=== PATIENT | male | born 1960 | race Caucasian/White ===

== ENCOUNTER 2025-05-06 12:53 | Inpatient (IN) | payer OTHER ==
[~2025-05-06] VITALS: Ht 188 cm; Wt 108.9 kg
[~2025-05-06 12:53] MED LIST: ALLO100 PO; Crestor20 MG PO; ESCI10 PO; LISI5 PO
[2025-05-06 13:18] LABS: BASOPHILS ABSOLUTE AUTO 0.05 K/mm3 (0.00-0.23); BASOPHILS PERCENT AUTO 1 % (0-2); EOSINOPHILS ABSOLUTE AUTO 0.16 K/mm3 (0.00-0.68); EOSINOPHILS PERCENT AUTO 2 % (0-6); Hematocrit 49.5 % (37.0-53.0); Hemoglobin 17.2 g/dL (13.5-17.5); IMMATURE GRAN ABSOLUTE AUTO 0.04 K/mm3 (0.00-0.10); IMMATURE GRAN PERCENT AUTO 1 % (0-1); LYMPHOCYTES ABSOLUTE AUTO 1.83 K/mm3 (0.84-5.20); LYMPHOCYTES PERCENT AUTO 23 % (21-46); MONOCYTES ABSOLUTE AUTO 1.03 K/mm3 (0.16-1.47); MONOCYTES PERCENT AUTO 13 % (4-13); Mean Corpuscular HGB Conc 34.7 g/dL (31.5-36.5); Mean Corpuscular Volume 96 fL (80-100); NEUTROPHILS ABSOLUTE AUTO 4.75 K/mm3 (1.96-9.15); NEUTROPHILS PERCENT AUTO 61 % (41-73); NRBC ABSOLUTE 0.00 K/mm3 (0.00-0.02); NRBC Auto 0.0 /100 WBC (0.0-0.2); Platelet Count 210 K/mm3 (150-400); RDW Coefficient Variation 12.7 % (11.7-14.2); RDW Standard Deviation 45.1 fL (35.1-46.3)
[2025-05-06 13:36] LABS: Alanine Aminotransfer (ALT/SGP 110.0 U/L (12-78); Albumin, Blood 3.7 g/dL (3.4-5.0); Albumin/Globulin Ratio 1.0 (0.8-1.8); Anion Gap 11.0 mmol/L (3-11); Aspartate Aminotrans (AST/SGOT 114.0 U/L (12-37); Bilirubin, Total 2.1 mg/dL (0.1-1.0); Blood Urea Nitrogen 15.0 mg/dL (8-24); CO2, Blood 23.0 mmol/L (21-32); Calcium, Blood 8.8 mg/dL (8.5-10.1); Chloride, Blood 102.0 mmol/L (98-108); Creatinine, Blood 0.84 mg/dL (0.60-1.20); Globulin, Blood 3.8 g/dL (2.2-4.0); Glucose, Blood 156.0 mg/dL (70-99); Potassium, Blood 4.3 mmol/L (3.5-5.5); Sodium, Blood 132.0 mmol/L (136-145); Total Protein, Blood 7.5 g/dL (6.4-8.2)
[2025-05-06] MEDS ORDERED: LORazepam 2 MG/ML 1ML Injection IV ONE (15:10)
[2025-05-06] MEDS ORDERED: NS 1,000 ML IV SCH (15:15)
[2025-05-06 16:48] LABS: Magnesium, Blood 2.1 mg/dL (1.6-2.4); Phosphorus, Blood 3.3 mg/dL (2.5-4.9)
[2025-05-06] MEDS ORDERED: LORazepam 2 MG/ML 1ML Injection IV PRN (18:30)
[2025-05-06] MEDS ORDERED: FLU VACC TS2025-26(6MOS UP)/PF 45 MCG/0.5 ML SYRINGE IM SCH (18:30)
[2025-05-06] MEDS ORDERED: ALLOPURINOL100 M1 PO (18:34)
[2025-05-06] MEDS ORDERED: BUPROPION XL150 M1 PO (18:34)
[2025-05-06 18:49] LABS: Alanine Aminotransfer (ALT/SGP 101.0 U/L (12-78); Albumin, Blood 3.4 g/dL (3.4-5.0); Albumin/Globulin Ratio 1.0 (0.8-1.8); Aspartate Aminotrans (AST/SGOT 105.0 U/L (12-37); Bilirubin, Direct 0.5 mg/dL (0.0-0.3); Bilirubin, Indirect 1.4 mg/dL (0.1-0.7); Bilirubin, Total 1.9 mg/dL (0.1-1.0); Globulin, Blood 3.5 g/dL (2.2-4.0); Total Protein, Blood 6.9 g/dL (6.4-8.2)
[2025-05-06] MEDS ORDERED: Ondansetron HCl 2 MG / ML 2ML Vial ONE (19:57)
[2025-05-06] MEDS ORDERED: THIAMINE HCL IV ONE (20:00)
[2025-05-06] MEDS ORDERED: NS IV ONE (20:00)
[2025-05-06 20:41] VITALS: BP 148/95
[2025-05-06] MEDS ORDERED: NS 250 ML IV PRN (21:00)
--- NOTE | 2025-05-07 00:02 | NUR ---
Floor Admission Note: Received pt. from the ED via w/c @ 2020, AOx4 speech is clear & is able to accurately respond to questioning by the RN, pt. mood & affect are stable, he is pleasant and is in good spirits upon admission. He denies any discomfort and/or tactile/auditory disturbance upon admission, he states slight numbing of his LUE, no visible tremors, sweating, nausea, restlessness and/or other S/S active withdrawals noted on the pt. at the time of admission. (L) AC IVL patent & intact, he tolerated IV Thiamine administered as ordered. He is stable & resting comfortably with his call velazquez in reach @ this time, all safety and comfort measures maintained by staff.
[2025-05-07 05:19] VITALS: BP 123/94
[2025-05-07 06:02] LABS: BASOPHILS ABSOLUTE AUTO 0.05 K/mm3 (0.00-0.23); BASOPHILS PERCENT AUTO 1 % (0-2); EOSINOPHILS ABSOLUTE AUTO 0.23 K/mm3 (0.00-0.68); EOSINOPHILS PERCENT AUTO 4 % (0-6); Hematocrit 43.7 % (37.0-53.0); Hemoglobin 14.8 g/dL (13.5-17.5); IMMATURE GRAN ABSOLUTE AUTO 0.04 K/mm3 (0.00-0.10); IMMATURE GRAN PERCENT AUTO 1 % (0-1); LYMPHOCYTES ABSOLUTE AUTO 2.10 K/mm3 (0.84-5.20); LYMPHOCYTES PERCENT AUTO 32 % (21-46); MONOCYTES ABSOLUTE AUTO 0.91 K/mm3 (0.16-1.47); MONOCYTES PERCENT AUTO 14 % (4-13); Mean Corpuscular HGB Conc 33.9 g/dL (31.5-36.5); Mean Corpuscular Volume 98 fL (80-100); NEUTROPHILS ABSOLUTE AUTO 3.21 K/mm3 (1.96-9.15); NEUTROPHILS PERCENT AUTO 49 % (41-73); NRBC ABSOLUTE 0.00 K/mm3 (0.00-0.02); NRBC Auto 0.0 /100 WBC (0.0-0.2); Platelet Count 172 K/mm3 (150-400); RDW Coefficient Variation 12.8 % (11.7-14.2); RDW Standard Deviation 45.8 fL (35.1-46.3)
[2025-05-07 06:42] LABS: Alanine Aminotransfer (ALT/SGP 86.0 U/L (12-78); Albumin, Blood 3.1 g/dL (3.4-5.0); Albumin/Globulin Ratio 1.0 (0.8-1.8); Anion Gap 9.0 mmol/L (3-11); Aspartate Aminotrans (AST/SGOT 75.0 U/L (12-37); Bilirubin, Total 1.9 mg/dL (0.1-1.0); Blood Urea Nitrogen 15.0 mg/dL (8-24); CO2, Blood 28.0 mmol/L (21-32); Calcium, Blood 8.3 mg/dL (8.5-10.1); Chloride, Blood 104.0 mmol/L (98-108); Creatinine, Blood 0.84 mg/dL (0.60-1.20); Globulin, Blood 3.2 g/dL (2.2-4.0); Glucose, Blood 122.0 mg/dL (70-99); Magnesium, Blood 2.4 mg/dL (1.6-2.4); Phosphorus, Blood 4.0 mg/dL (2.5-4.9); Potassium, Blood 4.0 mmol/L (3.5-5.5); Sodium, Blood 137.0 mmol/L (136-145); Thyroid Stimulating Hormone 2.18 uIU/mL (0.360-4.800); Total Protein, Blood 6.3 g/dL (6.4-8.2)
--- NOTE | 2025-05-07 07:23 | NUR ---
OUT OF ROOM NOTE: PATIENT OUT OF ROOM AT THIS TIME VIA W/C TO IMAGING.
[2025-05-07] MEDS ORDERED: Insulin Human Lispro 100 Units/ML 3ML Syringe SC SCH (07:30)
[2025-05-07 08:19] VITALS: BP 138/98
[2025-05-07] MEDS ORDERED: Enoxaparin 40 MG/0.4 ML SYR SC SCH (09:00)
[2025-05-07 15:23] VITALS: BP 125/87
--- NOTE | 2025-05-07 17:53 | NUR ---
PT ALERT AND ORIENTED X4, INDEPENDENT IN ROOM, CIWA SCORE 0, STATES LAST DRINK WAS THURSDAY AT 10PM, MRI STUDY COMPLETED TODAY ADN ABD US. PT DENIES PAIN, NAUSEA AND IS TOLERATING CARB CONSISTANT DIET. THIAMIVE IV Q6. CALL LIGHT IN REACH, BLOOD GLUCOSE STABLE.
[2025-05-07 19:52] VITALS: BP 153/98
[2025-05-08] VITALS (7 sets, daily range): BP systolic 126–143; BP diastolic 96–111
--- NOTE | 2025-05-08 03:32 | NUR ---
PATIENT REPORTS HE FEEL LIKE HE IS IN ALCOHOL WITHDRAWAL WITH HX OF. CIWA=8 WITH MILD SWEATS, MODERATE ANXIETY, AND HEADACHE WITH FEELING OF PARANOIA. IV ATIVAN 2 MG GIVEN PER EMAR. WCTM.
--- NOTE | 2025-05-08 04:33 | NUR ---
SHIFT SUMMARY PATIENT HAVING WITHDRAWALS (SEE NOTE). ALERT ORIENTED AND INDEPENDENT. DENIES CHEST PAIN, SOB, AND N/V. VSS/AFEBRILE. CBG 182. REPORTED DUQUE AND TYLENOL 650 MG GIVEN PER EMAR. PIV INTACT. IV THIAMINE INFUSED. REPORTS POOR SLEEP FIRST PART OF SHIFT. SLEPT AFTER IV ATIVAN WAS GIVEN. CALL LIGHT IN REACH. BED IN LOWEST POSITION. WILL CONTINUE TO MONITOR UNTIL DAY SHIFT NURSE ASSUMES CARE.
[2025-05-08 06:20] LABS: BASOPHILS ABSOLUTE AUTO 0.04 K/mm3 (0.00-0.23); BASOPHILS PERCENT AUTO 1 % (0-2); EOSINOPHILS ABSOLUTE AUTO 0.29 K/mm3 (0.00-0.68); EOSINOPHILS PERCENT AUTO 5 % (0-6); Hematocrit 44.6 % (37.0-53.0); Hemoglobin 15.3 g/dL (13.5-17.5); IMMATURE GRAN ABSOLUTE AUTO 0.02 K/mm3 (0.00-0.10); IMMATURE GRAN PERCENT AUTO 0 % (0-1); LYMPHOCYTES ABSOLUTE AUTO 1.95 K/mm3 (0.84-5.20); LYMPHOCYTES PERCENT AUTO 31 % (21-46); MONOCYTES ABSOLUTE AUTO 1.03 K/mm3 (0.16-1.47); MONOCYTES PERCENT AUTO 16 % (4-13); Mean Corpuscular HGB Conc 34.3 g/dL (31.5-36.5); Mean Corpuscular Volume 97 fL (80-100); NEUTROPHILS ABSOLUTE AUTO 2.96 K/mm3 (1.96-9.15); NEUTROPHILS PERCENT AUTO 47 % (41-73); NRBC ABSOLUTE 0.00 K/mm3 (0.00-0.02); NRBC Auto 0.0 /100 WBC (0.0-0.2); Platelet Count 170 K/mm3 (150-400); RDW Coefficient Variation 12.7 % (11.7-14.2); RDW Standard Deviation 45.1 fL (35.1-46.3)
[2025-05-08 06:55] LABS: Alanine Aminotransfer (ALT/SGP 111.0 U/L (12-78); Albumin, Blood 3.3 g/dL (3.4-5.0); Albumin/Globulin Ratio 0.9 (0.8-1.8); Anion Gap 6.0 mmol/L (3-11); Aspartate Aminotrans (AST/SGOT 112.0 U/L (12-37); Bilirubin, Total 1.2 mg/dL (0.1-1.0); Blood Urea Nitrogen 9.0 mg/dL (8-24); CO2, Blood 29.0 mmol/L (21-32); Calcium, Blood 8.6 mg/dL (8.5-10.1); Chloride, Blood 106.0 mmol/L (98-108); Creatinine, Blood 0.87 mg/dL (0.60-1.20); Globulin, Blood 3.5 g/dL (2.2-4.0); Glucose, Blood 136.0 mg/dL (70-99); Potassium, Blood 4.0 mmol/L (3.5-5.5); Sodium, Blood 137.0 mmol/L (136-145); Total Protein, Blood 6.8 g/dL (6.4-8.2)
[2025-05-08] MEDS ORDERED: Dexamethasone Sod Phos 10 MG/ML 1ML VIAL IV STA (16:40)
--- NOTE | 2025-05-08 18:21 | NUR ---
FULL REPORT CALLED TO [facility] AND GIVEN TO GAVIN HENRY RN.
--- NOTE | 2025-05-08 18:23 | NUR ---
PT ALERT AND ORIENTED X4, INDEPENDENT IN ROOM, CIWA SCORE 2, TOLERATING CONSISTANT CARB DIET, BLOOD GLOCOSE BELOW 160'S. PLAN FOR TRANSFER FOR HIGHER LEVEL OF CARE THIS EVENING TO [facility] FOR SURGICAL INTERVENTION.
--- NOTE | 2025-05-08 19:24 | NUR ---
[facility] TRANSPORT FOR [facility], TO AC IN PLACE, ALL BELONGINGS WITH PATIENT. PT DENIES PAIN. VSS AND ON RA.
[2025-05-09 11:50] LABS: HEPATITIS A ANTIBODY, IGM Negative (Negative); HEPATITIS C AB CIA INTERP Negative (Negative); HEPATITIS C ANTIBODY CIA INDEX 0.05 IV
== END 2025-05-08 19:23 | disposition short-term general hospital (02) | DRG 897 ==
LOC: ER 12:53 → MEDS 12:54 → ERHOLD 12:54 → MEDS 20:35 → ENPENDDIS 05-08 16:35 → MEDS 05-08 19:23
PROVIDERS: Family Medicine; Student in an Organized Health Care Education/Training Program; ADMIT Student in an Organized Health Care Education/Training Program
PROC: HZ2ZZZZ Detoxification Services for Substance Abuse Treatment (ICD-10-PCS; principal; 2025-05-07)
DX: F10.139 Alcohol abuse with withdrawal, unspecified (principal); E51.2 Wernicke's encephalopathy; G95.20 Unspecified cord compression; E11.9 Type 2 diabetes mellitus without complications; G47.00 Insomnia, unspecified; M50.31 Other cervical disc degeneration, high cervical region; M48.02 Spinal stenosis, cervical region; K76.0 Fatty (change of) liver, not elsewhere classified; Z79.899 Other long term (current) drug therapy
CPT/HCPCS: 36415; 70450; 70551; 72125; 72141; 76705; 80053; 80074; 80076; 82607; 82746; 82947; 83036; 83735; 84100; 84443; 84484; 85025; 93005; 93010; 96365; 96367; 96375; 99285-25; A9270; G0378; J1100; J1650; J2060; J2405; J3411; J7030; J7050